=== PATIENT | female | born 1990 | race Caucasian/White ===

== ENCOUNTER 2016-06-10 15:47 | Emergency (ER) | payer OTHER ==
[~2016-06-10] VITALS: Ht 170.1 cm; Wt 6.4 kg
[2016-06-10] MEDS ORDERED: NEXPLANON68 M2 SQ (16:00)
[2016-06-10] MEDS ORDERED: ZOFRAN ODT4 MG SL (17:55)
[2016-06-10] MEDS ORDERED: ANAPROX DS550 MG PO (17:55)
== END 2016-06-10 17:57 | disposition home or self-care (01) ==
LOC: ED 15:47
DX: S90.31XA Contusion of right foot, initial encounter (principal); S80.01XA Contusion of right knee, initial encounter; S09.90XA Unspecified injury of head, initial encounter; F17.200 Nicotine dependence, unspecified, uncomplicated; Z90.49 Acquired absence of other specified parts of digestive tract; W22.8XXA Striking against or struck by other objects, initial encounter; Y93.89 Activity, other specified; Y92.009 Unspecified place in unspecified non-institutional (private) residence as the place of occurrence of the external cause; Y99.9 Unspecified external cause status

== ENCOUNTER 2018-06-19 18:23 | Emergency (ER) | payer OTHER ==
[~2018-06-19] VITALS: Ht 170.1 cm; Wt 97.5 kg
[~2018-06-19 18:23] MED LIST: ANAPROX DS550 MG PO; NEXPLANON68 M2 SQ; ZOFRAN ODT4 MG SL
== END 2018-06-19 20:35 | disposition home or self-care (01) ==
LOC: ED 18:23
DX: S40.011A Contusion of right shoulder, initial encounter (principal); F17.200 Nicotine dependence, unspecified, uncomplicated; Z90.49 Acquired absence of other specified parts of digestive tract; Z79.899 Other long term (current) drug therapy; Y04.2XXA Assault by strike against or bumped into by another person, initial encounter; Y93.89 Activity, other specified; Y92.89 Other specified places as the place of occurrence of the external cause; Y99.8 Other external cause status

== ENCOUNTER 2022-03-12 01:33 | Emergency (ER) | payer OTHER ==
[~2022-03-12] VITALS: Ht 170.1 cm; Wt 108.9 kg
[2022-03-12] MEDS ORDERED: NAPROXEN250 MG PO (01:47)
[2022-03-12] MEDS ORDERED: METHOCARBAMOL750 M1 PO (01:47)
== END 2022-03-12 01:55 | disposition home or self-care (01) ==
LOC: ED 01:33
DX: S16.1XXA Strain of muscle, fascia and tendon at neck level, initial encounter (principal); Z79.899 Other long term (current) drug therapy; Z90.49 Acquired absence of other specified parts of digestive tract; X58.XXXA Exposure to other specified factors, initial encounter; Y93.89 Activity, other specified; Y92.89 Other specified places as the place of occurrence of the external cause; Y99.8 Other external cause status

== ENCOUNTER 2022-03-25 15:29 | Emergency (ER) | payer OTHER ==
[~2022-03-25] VITALS: Wt 111.1 kg
[~2022-03-25 15:29] MED LIST changes: +METHOCARBAMOL750 M1 PO; +NAPROXEN250 MG PO
[2022-03-25] MEDS ORDERED: PREDNISONE20 M1 PO ×2 (18:58→19:00)
[2022-03-25] MEDS ORDERED: AMOX-CLAV 875-1 EACH PO ×2 (18:58→19:00)
== END 2022-03-25 18:55 | disposition home or self-care (01) ==
LOC: ED 15:29
DX: J02.0 Streptococcal pharyngitis (principal); Z79.899 Other long term (current) drug therapy; Z90.49 Acquired absence of other specified parts of digestive tract

== ENCOUNTER 2023-11-01 21:03 | Emergency (ER) | payer OTHER ==
[~2023-11-01] VITALS: Ht 180.3 cm; Wt 117.9 kg
[~2023-11-01 21:03] MED LIST changes: +AMOX-CLAV 875-1 EACH PO; +PREDNISONE20 M1 PO
[2023-11-01] MEDS ORDERED: Ketorolac Tromethamine 60 MG/2 ML VIAL IM ONE (21:20)
[2023-11-01] MEDS ORDERED: METHOCARBAMOL 500 MG TAB PO ONE (21:20)
== END 2023-11-01 21:25 | disposition home or self-care (01) ==
LOC: ED 21:03
DX: S16.1XXA Strain of muscle, fascia and tendon at neck level, initial encounter (principal); Z90.49 Acquired absence of other specified parts of digestive tract; X58.XXXA Exposure to other specified factors, initial encounter; Y93.89 Activity, other specified; Y92.009 Unspecified place in unspecified non-institutional (private) residence as the place of occurrence of the external cause; Y99.8 Other external cause status